=== PATIENT | male | born 1980 ===

== ENCOUNTER 2020-10-07 10:41 | Emergency (ER) | payer OTHER, SELFPAY ==
[2020-10-07 11:23] VITALS: BP 136/90; PULSE 104; RESP 16; TEMP 36.1; O2SAT 96; BMI 39.1
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
== END 2020-10-07 12:56 | disposition home or self-care (01) ==
PROVIDERS: Emergency Provider Emergency Medicine
DX: S39.012A Strain of muscle, fascia and tendon of lower back, initial encounter (principal); W03.XXXA Other fall on same level due to collision with another person, initial encounter; Y93.9 Activity, unspecified; Y92.512 Supermarket, store or market as the place of occurrence of the external cause; Y99.0 Civilian activity done for income or pay
CPT/HCPCS: 99283

== ENCOUNTER 2022-06-11 20:42 | Emergency (ER) | payer SELFPAY ==
[2022-06-11 20:47] VITALS: BP 130/72; PULSE 105; RESP 18; O2SAT 98; BMI 28.1
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
[2022-06-12 02:17] VITALS: BP 124/76; PULSE 80; RESP 17; TEMP 37; O2SAT 98
== END 2022-06-12 06:44 | disposition home or self-care (01) ==
PROVIDERS: Emergency Provider Emergency Medicine
DX: F10.10 Alcohol abuse, uncomplicated (principal); Y90.9 Presence of alcohol in blood, level not specified
CPT/HCPCS: 99283

== ENCOUNTER 2022-12-05 13:45 | Emergency (ER) | payer MEDICAID, SELFPAY ==
--- NOTE | ~2022-12-05 | CT_ITS ---
EXAMINATION: CT HEAD WITHOUT CONTRAST CT FACE WITHOUT CONTRAST CT CERVICAL SPINE WITHOUT CONTRAST CLINICAL INFORMATION: Alcohol intoxication. Fall. Pain. COMPARISON: No relevant prior imaging. TECHNIQUE: Stitcher Set Up Operator Automatic images were obtained. CT imaging of the head, face, and cervical spine was performed without contrast. Data was reformatted into multiplanar images at the acquisition workstation. This CT examination was performed using dose optimization techniques as appropriate, including one or more of the following: Automated exposure control, iterative reconstruction, and adjustment of technique factors (mA and/or kVp) according to patient size (this includes techniques or standardized protocols for targeted exams where dose is matched to indication/reason for exam). Fleischner Society criteria for the followup of incidental pulmonary nodules was implemented if appropriate. DLP: 1897 mGy-cm. FINDINGS: Head: There is focal swelling of the right frontal scalp. The underlying calvarium is intact. No acute intracranial hemorrhage or abnormal extra-axial collection. No intracranial mass effect or midline shift. Lateral and third ventricles are normal. No hydrocephalus. Degroot-white matter differentiation is grossly preserved and there is no evidence of acute territorial infarct. There is no mastoid or middle ear effusion. Temporomandibular joints are grossly symmetric. Face: Nasal bones, zygomatic arches, and pterygoid processes are intact. No acute mandibular fracture. The temporomandibular joints are symmetric. There is mild to moderate paranasal sinus disease. The nasal septum deviates to the right. Globes and extraocular muscles are symmetric. No abnormal retrobulbar mass or inflammation. The lamina papyracea and orbital floors are intact and there is no evidence of acute orbital blowout fracture. Orbital apices are unremarkable. Cervical spine: There is slight retrolisthesis of C6 on C7. Alignment is otherwise normal in the sagittal dimension. Vertebral heights are preserved. No acute cervical spinal fracture. No abnormal prevertebral soft tissue swelling. Canal patency is not well assessed on this examination due to inherent limitations of CT without intrathecal contrast. A hypertrophic disc osteophyte spurring in conjunction causes severe canal stenosis at C5-C6 and C6-C7 and there is at least moderate canal stenosis at C3-C4 and C4-C5. Uncovertebral joint spurring in conjunction with facet degenerative change causes moderate to severe neuroforaminal encroachment at multiple levels. Visualized soft tissues of neck are normal. No pathologically enlarged cervical lymph nodes. Lung apices are clear. CT/CT facial bones wo IV con IMPRESSION: Head and face: There is focal swelling of the right frontal scalp. The underlying calvarium is intact. No acute intracranial hemorrhage. No acute facial fracture. Cervical spine: No acute cervical spine fracture. There is multilevel degenerative spondylosis of the cervical spine with severe canal stenosis at C5-C6 and C6-C7 and at least moderate canal stenosis at C3-C4 and C4-C5. If there are clinical symptoms of compressive myelopathy then a dedicated cervical spine MRI can be obtained for better anatomic characterization of the cord and canal.
[2022-12-05 14:04] VITALS: BP 138/90; BP 162/110; PULSE 102; PULSE 93; RESP 16; TEMP 36.9; O2SAT 96; O2SAT 97; BMI 34.5
[2022-12-05 14:48] LABS: Appearance Urine Clear; Color Urine Yellow; Glucose Urine UA Negative (Negative); Leukocyte Esterase Urine Negative (Negative); Nitrite Urine Negative (Negative); Specific Gravity - Urine <= 1.005 (1.005-1.025); UMIC TRIGGER UACC YES; Urine Blood Moderate (2+) (Negative); Urine Ketones Negative (Negative); Urine Protein Negative (Neg-Trace)
[2022-12-05 14:58] LABS: Amphetamine Screen Urine Not Detected (Not Detect); Barbiturates, Urine Not Detected (Not Detect); Benzodiazepines Screen Urine Not Detected (Not Detect); Cannabinoid Screen Urine POSITIVE (Not Detect); Cocaine Screen Urine POSITIVE (Not Detect); Fentanyl, urine Not Detected (Not Detect); Opiate Screen Urine Not Detected (Not Detect); Phencyclidine Screen Urine Not Detected (Not Detect)
[2022-12-05 15:01] LABS: Bacteria Urine None Seen (None Seen); Hyaline Casts Urine 0-2 /LPF (0-2); RBC Urine 0-2 /HPF (0-2); Squamous Epithelial Cell Urine 0-2 /HPF (0-2); WBC Urine 0-5 /HPF (0-5)
[2022-12-05 16:30] VITALS: BP 135/78; PULSE 85; RESP 14; O2SAT 98
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
[2022-12-05] MEDS: Lidocaine HCl 2 % 20 ML VIAL 10 ML INFILTRATI (17:05)
--- NOTE | 2022-12-05 17:11 | ED.FALL ---
HPI - Fall General Chief Complaint: Fall Stated Complaint: etoh fall, laceration Time Seen by Provider: 12/05/22 14:02 Source: patient Mode of arrival: EMS History of Present Illness HPI Narrative: 42-year-old male who arrives via EMS due to being intoxicated, tripped while he was walking and fell with minor abrasions noted to the right maxilla, knee and laceration to the right eyebrow. Related Data Previous Rx's Medication Instructions Recorded cyclobenzaprine 5 mg tablet 5 mg PO TID PRN muscle spasm #10 10/07/20 tabs hydrocodone 5 mg-acetaminophen 325 1 tab PO Q6H PRN pain #10 tabs 10/07/20 mg tablet ibuprofen 600 mg tablet 600 mg PO Q6H PRN pain #20 tabs 10/07/20 Allergies Allergy/AdvReac Type Severity Reaction Status Date / Time No Known Allergies Allergy Unverified 03/13/20 17:25 [No Known Allergies*] Review of Systems Review of Systems: Pertinent positives and negatives as stated in HPI PMFSH Past Medical History Source: nursing notes reviewed Medical History Alcohol abuse Osteoarthritis Social History Social History Alcohol intake: current Alcohol intake frequency: 3 or more drinks per day Smoked in Last 30 Days: No Use of substances other than those prescribed or required for medical reasons: Yes Substance Use Type: Marijuana Advance Directives: No Advance Directives Information Provided: Yes Physical Exam Vital Signs: Vital Signs: Last Vital Signs Temp 98.4 F 12/05/22 14:04 Pulse 85 12/05/22 16:30 Resp 14 12/05/22 16:30 BP 135/78 12/05/22 16:30 Pulse Ox 98 12/05/22 16:30 O2 Del Method Room Air 12/05/22 16:30 BMI result Body Mass Index 34.5 VITAL SIGNS: Reviewed. GENERAL: Well developed, well nourished, in no acute distress. HEAD: Normocephalic/atraumatic EYES: PERRLA, EOMI, superficial abrasion to the lower right lateral canthus, irregular 2 cm laceration with contusion to superior aspect of right eyebrow EARS: Ext canals without abnormality, TMs non-bulging and non-erythematous NOSE: Nares patent bilateral OROPHARYNX: no oral lesions noted, posterior pharynx clear NECK: Supple, no adenopathy LUNGS: Normal breath sounds. No adventitious sounds or accessory muscle use. SpO2<98> CARDIOVASCULAR: Regular rate and rhythm without noted murmurs ABDOMEN: Soft, non-tender, non-distended with bowel sounds. MUSCULOSKELETAL: No tenderness, deformities, or effusions noted on gross inspection. EXTREMITIES: No cyanosis, clubbing or edema; RIGHT KNEE: Superficial abrasion SKIN: Inspection of the skin reveals no rashes NEUROLOGIC: Alert and oriented x 4. Strength and sensation to light touch were grossly intact x 4. Medications Administered Discontinued Medications Generic Name Dose Route Start Last Admin Trade Name Freq PRN Reason Stop Dose Admin Lidocaine HCl 10 ml 12/05/22 16:30 12/05/22 17:05 Lidocaine Hcl 2 % 20 Ml Vial INFILTRATI 12/05/22 16:31 10 ml ONCE ONE Administration Medical Decision Making Medical Decision Making MDM Narrative: 42-year-old male with history and clinical presentation consistent with alcohol intoxication leading to a mechanical fall with head strike but denies loss of consciousness superficial injuries other than the laceration to right superior eyebrow. Will receive Tdap and on review of all imaging studies my interpretation is in agreement with radiology's impression that there are no acute findings to suggest fracture/dislocation. Laceration over the eyebrow was repaired with sutures. Differential Diagnosis Please see the discussion above Lab Data Labs: Lab Results 12/05/22 12/05/22 Range/Units 14:35 14:35 Urine Color Yellow Urine Appearance Clear Urine pH 6.0 (5.0-9.0) Ur Specific Canon <= 1.005 (1.005-1.025) Urine Protein Negative (Neg-Trace) mg/dL Urine Glucose (UA) Negative (Negative) mg/dL Urine Ketones Negative (Negative) mg/dL Urine Blood Moderate (2+) H (Negative) Urine Nitrite Negative (Negative) Ur Leukocyte Esterase Negative (Negative) Urine RBC 0-2 (0-2) /HPF Urine WBC 0-5 (0-5) /HPF Ur Squamous Epith Cells 0-2 (0-2) /HPF Urine Bacteria None Seen (None Seen) Hyaline Casts 0-2 (0-2) /LPF Urine Opiates Screen Not Detected (Not Detect) Urine Fentanyl Screen Not Detected (Not Detect) Ur Barbiturates Screen Not Detected (Not Detect) Ur Phencyclidine Scrn Not Detected (Not Detect) Ur Amphetamines Screen Not Detected (Not Detect) U Benzodiazepines Scrn Not Detected (Not Detect) Urine Cocaine Screen POSITIVE H (Not Detect) U Marijuana (THC) Screen POSITIVE H (Not Detect) Radiology Impression Radiologist Impression: My interpretation is in agreement with radiology's impression. Discharge Plan Discharge Clinical Impression: Alcohol intoxication, Fall, Forehead laceration Patient Disposition: Still a Patient Instructions: Alcohol Intoxication (ED), Fall Prevention (ED), Laceration (ED), Care For Your Stitches (ED) Additional Instructions: 1. Resume all home medications as prescribed. 2. You may cleanse the wounds with soap and water and blot dry and then apply antibiotic ointment. 3. Return for suture removal in 5 days. Return to the ER for any worsening symptoms such as visual changes, fever, chills. Prescriptions: No Action hydrocodone-acetaminophen 5-325 mg tablet 1 tab PO Q6H PRN (Reason: pain) Qty: 10 0RF Rx Instructions: This medication may cause drowsiness, no driving for 6 hours after taking ibuprofen 600 mg tablet 600 mg PO Q6H PRN (Reason: pain) Qty: 20 0RF cyclobenzaprine 5 mg tablet 5 mg PO TID PRN (Reason: muscle spasm) Qty: 10 0RF Rx Instructions: This medication may cause drowsiness, no driving for 8 hours after taking
== END 2022-12-05 18:31 | disposition home or self-care (01) ==
PROVIDERS: Emergency Provider Student in an Organized Health Care Education/Training Program
DX: S01.81XA Laceration without foreign body of other part of head, initial encounter (principal); R51.9 Headache, unspecified; M54.2 Cervicalgia; F10.129 Alcohol abuse with intoxication, unspecified; W01.10XA Fall on same level from slipping, tripping and stumbling with subsequent striking against unspecified object, initial encounter; Y93.9 Activity, unspecified; Y92.9 Unspecified place or not applicable; Y99.9 Unspecified external cause status; Z79.899 Other long term (current) drug therapy; Y90.9 Presence of alcohol in blood, level not specified
CPT/HCPCS: 12052; 70450; 70486; 72125; 80307; 81001; 99284